=== PATIENT | male | born 2000 | race Caucasian/White ===

== ENCOUNTER 2023-11-04 00:37 | Emergency (ER) | payer OTHER ==
[2023-11-04 00:47] VITALS: PULSE 106; RESP 18; BMI 44.4
[2023-11-04] MEDS ORDERED: SODIUM CHLORIDE 0.9% 500 ML INFUS.BAG IV ONE (01:53)
[2023-11-04 02:27] LABS: BASO % 0.6 % (0-2.0); EOS % 2.2 % (0-4.5); HEMATOCRIT 42.6 % (35.4-49); HEMOGLOBIN 14.2 GM/dL (11.7-16.9); LYMPH % 27.3 % (8-40); MCH 28.6 pg (25.7-33.7); MCHC 33.3 g/dl (32.0-35.9); MEAN PLT VOLUME 7.1 fl (7.5-11.1); MONO % 7.8 % (3.8-10.2); NEUT % 62.1 % (42.8-82.8); PLATELET COUNT 426 10^3/uL (134-434); RBC 4.96 M/mm3 (4.00-5.60); RDW 14.2 % (11.9-15.9); WHITE BLOOD COUNT 15.2 K/mm3 (4.0-10.0)
[2023-11-04 02:41] LABS: POTASSIUM 4.7 mmol/L (3.5-5.1)
[2023-11-04 02:42] LABS: CALCIUM 9.6 mg/dL (8.5-10.1)
[2023-11-04 02:44] LABS: BLOOD UREA NITROGEN 15.6 mg/dL (7-18)
[2023-11-04 02:47] LABS: CREATININE 0.9 mg/dL (0.55-1.3)
[2023-11-04 02:48] LABS: BILIRUBIN,TOTAL 0.4 mg/dL (0.2-1)
[2023-11-04 03:04] VITALS: BP 128/92; TEMP 98
== END 2023-11-04 03:04 | disposition home or self-care (01) ==
LOC: JER 00:37
DX: R07.9 Chest pain, unspecified (principal); R00.2 Palpitations
CPT/HCPCS: 36415; 71045-TC-FY; 80053; 84484; 85025; 93005; 93010; 99285-25